=== PATIENT | female | born 1970 | race Caucasian/White ===

== ENCOUNTER → 2023-05-18 16:43 | Outpatient (REF) | payer BC, SELFPAY | LOC: HWWDC 16:43 | PROVIDERS: ATTENDING PHYSICIAN Obstetrics & Gynecology; FAMILY PHYSICIAN Nurse Practitioner Adult Health | DX: Z12.31 Encounter for screening mammogram for malignant neoplasm of breast (principal) | CPT/HCPCS: 77063; 77067 ==

== ENCOUNTER → 2023-07-21 07:33 | Outpatient (REF) | payer BC, SELFPAY | LOC: EMG 07:33 | PROVIDERS: ATTENDING PHYSICIAN Nurse Practitioner Adult Health | DX: R20.0 Anesthesia of skin (principal) | CPT/HCPCS: 95886; 95909 ==

== ENCOUNTER → 2023-09-09 16:15 | Outpatient (REF) | payer BC, SELFPAY | LOC: HWRAD 16:15 | PROVIDERS: ATTENDING PHYSICIAN Nurse Practitioner Adult Health | DX: M54.50 Low back pain, unspecified (principal) | CPT/HCPCS: 72190 ==

== ENCOUNTER → 2023-09-10 14:38 | Outpatient (REF) | payer BC, SELFPAY | LOC: WDC 14:38 | PROVIDERS: ATTENDING PHYSICIAN Obstetrics & Gynecology; FAMILY PHYSICIAN Nurse Practitioner Adult Health | DX: R92.2 Inconclusive mammogram (principal) | CPT/HCPCS: 76641 ==

== ENCOUNTER → 2023-09-29 13:54 | Outpatient (REF) | payer BC, SELFPAY | LOC: HWRAD 13:54 | PROVIDERS: ATTENDING PHYSICIAN Physician Assistant; FAMILY PHYSICIAN Nurse Practitioner Adult Health | DX: M54.50 Low back pain, unspecified (principal); M79.643 Pain in unspecified hand; M79.673 Pain in unspecified foot | CPT/HCPCS: 72114; 73120; 73630 ==

== ENCOUNTER → 2024-09-22 14:06 | Outpatient (REF) | payer BC, SELFPAY | LOC: HWWDC 14:06 | PROVIDERS: ATTENDING PHYSICIAN Obstetrics & Gynecology; FAMILY PHYSICIAN Nurse Practitioner Adult Health | DX: Z12.31 Encounter for screening mammogram for malignant neoplasm of breast (principal) | CPT/HCPCS: 77063; 77067 ==

== ENCOUNTER → 2024-11-01 07:20 | Outpatient (REF) | payer BC, SELFPAY | LOC: HWRCS 07:20 | PROVIDERS: ATTENDING PHYSICIAN Internal Medicine Cardiovascular Disease; FAMILY PHYSICIAN Nurse Practitioner Adult Health | DX: R00.2 Palpitations (principal); I34.0 Nonrheumatic mitral (valve) insufficiency; I36.1 Nonrheumatic tricuspid (valve) insufficiency | CPT/HCPCS: 93306 ==